=== PATIENT | male | born 1940 | race Caucasian/White ===

== ENCOUNTER 2017-09-26 08:48 | Inpatient (IN) | payer MEDICARE ==
--- NOTE | 2017-09-18 13:32 | HP ---
PREOPERATIVE HISTORY AND PHYSICAL: DATE OF ADMISSION: 09/26/17 PROVIDER: Juju Uribe MD * (DICTATED BY KATHY GEE) CHIEF COMPLAINT: Right knee pain. HISTORY OF PRESENT ILLNESS: Mr. Martinez is a 77-year-old gentleman with severe end-stage osteoarthritis of the right knee joint. He has constant pain with any ambulation. He cannot walk even one block without severe pain. He has difficulty with stairs and standing from a sitting position. He has failed conservative treatments. He is interested in surgical intervention for correction of the problem. PAST MEDICAL HISTORY: Osteoarthritis, hypertension, coronary artery disease, heart valve disorder, chronic ischemic heart disease, mitral valve abnormality and aortic valve stenosis, chronic peripheral edema, hypercholesterolemia, GERD , BPH, and a history of MRSA infection. PAST SURGICAL HISTORY: Coronary artery bypass graft with aortic valve and mitral valve replacement by Dr. Banks in [facility]. Cholecystectomy, tonsils and adenoids, multiple skin lesions, eye surgery, adenoidectomy, bilateral hernia repair, appendectomy, and cataract excision. He reports no complications that he can recall with any of those procedures. CURRENT MEDICATIONS: 1. Ondansetron 4 mg p.o. 8 hours as needed. 2. Amoxicillin 500 mg 4 tabs half an hour prior to dental procedures as needed. 3. Cipro 750 mg daily. 4. Atorvastatin calcium 80 mg daily. 5. Potassium chloride 20 mEq daily. 6. Multivitamin daily. 7. Pantoprazole sodium 40 mg daily. 8. Fexofenadine 180 mg daily. 9. Levothyroxine sodium 88 mcg daily. 10. Aspirin 81 mg daily. 11. Metoprolol tartrate 50 mg twice daily. 12. Furosemide 40 mg daily. 13. Tamsulosin 0.4 mg daily. 14. Tylenol 325 mg as needed. 15. Percocet 5/325 mg as needed. 16. Gabapentin 400 mg 3 times daily. 17. Nitrostat 0.4 mg sublingual q.5 minutes as needed. 18. Escitalopram oxylate 10 mg daily. 19. Ferrous sulfate 325 mg daily. 20. Guaifenesin ER 600 mg at night as needed. 21. Vitamin D 1000 units daily. ALLERGIES: ARTHROTEC, LISINOPRIL, DICLOFENAC, MISOPROSTOL, and CEFEPIME. FAMILY HISTORY: Positive for heart disease. SOCIAL HISTORY: He lives with his . He has never smoked. He denies significant alcoholic beverages. He denies recreational drug use. He ambulates with a walker secondary to pain. REVIEW OF SYSTEMS: Constitutional: Negative for recent hospitalizations, fevers, chills, night sweats or unexplained weight loss. Head: Negative for headaches, lightheadedness, or balance problems. Cardiovascular: Negative for chest or arm pain with exertion. Positive for history of heart attack and coronary artery disease. Positive for heart palpitations and a history of heart murmur. Positive for hypertension. Negative for DVT. Respiratory: Negative for chronic cough, shortness of breath with exertion, asthma, or COPD. Gastrointestinal: Positive for occasional heartburn. Negative for nausea, vomiting, diarrhea, or constipation. Positive for GERD. Genitourinary: Negative for nighttime urination, frequency of urination, urinary tract infections or kidney problems. Positive for BPH. Musculoskeletal: Negative for chronic back pain. No recent fracture. Skin: Negative for rashes, lesions , lumps, or sores. Endocrine: Negative for diabetes. Positive for hypothyroidism. Hematology: Negative for easy bleeding, bruising, or anemia. PHYSICAL EXAMINATION GENERAL: He is a well-developed, well-nourished pleasant male in no acute distress at rest. He is alert and oriented x3 with appropriate mood and affect. VITAL SIGNS: The patient is 5 feet 4 inches, 234 pounds. Blood pressure 110/68 , pulse 56, respirations 14, temperature 98.4. GAIT: He has a moderately antalgic gait favoring the right knee. He does use a cane. HEENT: Normocephalic, atraumatic. His hearing and vision are grossly intact. NECK: His trachea is midline. RESPIRATORY: Lungs are clear to auscultation bilaterally. No wheezes, rales, or rhonchi. CARDIOVASCULAR: Regular rate and rhythm. There is an audible murmur secondary to his valve replacement. No rubs, or gallops. Normal S1 and S2. ABDOMEN: Soft, nondistended, nontender. Normal bowel sounds. EXTREMITIES: Exam of the right lower extremity, skin is intact without abrasions or open wounds. There is no edema, ecchymosis, or gross deformities. There is no lymphadenopathy. He has had prior toe amputations distally. He has 5/5 strength with dorsiflexion and plantar flexion at the ankle. He has a moderate joint effusion at the knee. He has a varus deformity. He has 15 to 110 degrees of flexion with no varus or valgus instability. IMAGING: Standing views of the right knee were reviewed in the office and show severe end-stage osteoarthritic changes of the right knee. IMPRESSION: Right knee osteoarthritis. PLAN: The patient is to undergo right total knee arthroplasty by Dr. Uribe on 09/26/17. The risks, benefits, and post-operative course were discussed with the patient at length and he would like to proceed. A prescription for oxycodone will be sent to his pharmacy for postoperative pain. Coumadin will also be sent for DVT prophylaxis. All of his questions were answered to his full satisfaction. He is understanding. Call if he develops problems or concerns. KATHY GEE [id number]/[facility] #: [id number] MTDLesley
[~2017-09-26 08:48] MED LIST: Buffered Lidocaine 0.9% SYRIN* 5 ML/SYR SYRINGE INTRADERM ONE; Famotidine IV* 10 MG/ML 2 ML (20 mg) IV ONE
[2017-09-26] MEDS ORDERED: Famotidine IV* 10 MG/ML 2 ML (20 mg) ONE (08:59)
[2017-09-26] MEDS ORDERED: Buffered Lidocaine 0.9% SYRIN* 5 ML/SYR SYRINGE ONE (08:59)
[2017-09-26] MEDS ORDERED: ceFAZolin 2 GM PREMIX (*) 2 GM/50 ML BAG IVPB ONE (08:59)
[2017-09-26] MEDS ORDERED: Dexamethasone IV* 4 MG/ML 1 ML (4 MG) ONE (10:03)
[2017-09-26] MEDS ORDERED: Lidocaine 2% PF * 5 ML VIAL ONE ×2 (10:03→10:55)
[2017-09-26] MEDS ORDERED: KETAMINE HCL* 50 MG/ML 10 ML VIAL ONE (10:03)
[2017-09-26] MEDS ORDERED: fentaNYL* 50 MCG/ML 2 ML VIAL (100 MCG VIAL) ONE ×2 (10:03→15:18)
[2017-09-26] MEDS ORDERED: Midazolam* 1 MG/ML 5 ML VIAL (5 MG) ONE (10:03)
[2017-09-26] MEDS ORDERED: Propofol* 10 MG/ML 20 ML BTL IV PUSH ONE (10:03)
[2017-09-26] MEDS ORDERED: Ondansetron INJ* 2 MG/ML VIAL ONE (10:03)
[2017-09-26] MEDS ORDERED: ROPIVACAINE 5 MG/ML 30 ML BTL (0.5%) ONE (10:55)
[2017-09-26] MEDS ORDERED: Phenylephrine IV* 40 MCG/ML 10 ML SYRINGE ONE (11:36)
[2017-09-26] MEDS ORDERED: Phenylephrine INJ* 10 MG/ML 1 ML VIAL (10 MG) ONE (11:56)
[2017-09-26] MEDS ORDERED: EPHEDrine (Pressors)* 50 MG/ML VIAL ONE (11:56)
[2017-09-26] MEDS ORDERED: fentaNYL* 50 MCG/ML 5 ML VIAL (250 MCG VIAL) ONE (12:08)
[2017-09-26] MEDS ORDERED: HYDROmorphone INJ* 1 MG/ML CARPUJECT SYRINGE IV PRN (12:58)
[2017-09-26] MEDS ORDERED: fentaNYL* 50 MCG/ML 2 ML VIAL (100 MCG VIAL) IV PRN (12:58)
[2017-09-26] MEDS ORDERED: Ondansetron INJ* 2 MG/ML VIAL IV PRN (12:58)
[2017-09-26] MEDS ORDERED: Bupivacaine 0.5% SDV PF* 30 ML VIAL ONE (13:09)
[2017-09-26] MEDS ORDERED: Ondansetron TAB* 4 MG PO PRN (13:53)
[2017-09-26] MEDS ORDERED: diPHENhydraMINE IV* 50 MG/ML 1 ml VIAL (BENADRYL) IV PRN (13:53)
[2017-09-26] MEDS ORDERED: Morphine INJ* 2 MG/ML 1 ML SYRINGE (TWO MG - NEW SYRINGE VERSION) IV PRN (13:53)
[2017-09-26] MEDS ORDERED: Acetaminophen TAB* 325 MG PO PRN (13:53)
[2017-09-26] MEDS ORDERED: Polyethylene Glycol 3350* 17 GM PACKET PO PRN (13:53)
[2017-09-26] MEDS ORDERED: Bisacodyl SUPP* 10 MG SUPP PR PRN (13:53)
[2017-09-26] MEDS ORDERED: Magnesium Hydroxide LIQ* 30 ML UDC PO PRN (13:53)
[2017-09-26] MEDS ORDERED: oxyCODONE TAB* 5 MG TAB PO PRN (13:53)
[2017-09-26] MEDS ORDERED: Nitroglycerin TAB 0.4 MG* 0.4 MG TAB SL PRN (13:58)
[2017-09-26] MEDS ORDERED: guaiFENesin ER TAB 600 MG PO PRN (13:58)
[2017-09-26] MEDS ORDERED: HYDROmorphone INJ* 1 MG/ML CARPUJECT SYRINGE ONE (15:18)
--- NOTE | 2017-09-26 15:28 | RAD ---
INDICATION: Status post total right knee replacement surgery. TECHNIQUE: 2 views of the right knee were obtained. FINDINGS: The patient is status post total right knee replacement surgery. The bones and prostheses are in normal alignment. There is a surgical drain anterior to the distal femur. IMPRESSION: STATUS POST TOTAL RIGHT KNEE REPLACEMENT SURGERY.
[2017-09-26] MEDS ORDERED: Warfarin TAB(*) 6 MG PO ONE (17:00)
[2017-09-26] MEDS: Gabapentin CAP(*) 400 MG PO SCH ×2 (17:11→21:29)
[2017-09-26] MEDS: Clindamycin 600 MG IVPREMIX(* 600 MG/50 ML SDV IV SCH (17:49)
[2017-09-26] MEDS: Citalopram TAB* 20 MG PO SCH (18:15)
[2017-09-26] MEDS: Ciprofloxacin TAB* 750 MG PO SCH (18:21)
[2017-09-26] MEDS: Docusate CAP* 100 MG PO SCH (21:27)
[2017-09-26] MEDS: Metoprolol Tartrate TAB* 50 mg PO SCH (21:27)
[2017-09-27] MEDS: Clindamycin 600 MG IVPREMIX(* 600 MG/50 ML SDV IV SCH ×3 (01:48→17:36)
[2017-09-27] MEDS: Levothyroxine TAB* 88 MCG TAB PO SCH (05:35)
[2017-09-27 06:26] LABS: Hematocrit 33 % (42-52); Hemoglobin 11.8 g/dl (14.0-18.0)
[2017-09-27 06:39] LABS: BUN/Creatinine Ratio 16.6 (8-20); Calcium 8.2 mg/dL (8.6-10.3); EGFR African American 55.7 (>60); EGFR Non-African American 43.3 (>60); Potassium 3.8 mmol/L (3.5-5.0)
--- NOTE | 2017-09-27 07:33 | OP ---
DATE OF OPERATION: 09/26/17 - ROOM #349 DATE OF : 44. SURGEON: Juju Uribe MD. IMAGING SERVICES DIRECTOR: KATHY Meier. Ms. Garcia did help throughout the procedure with preparation of the leg, wound retraction, manipulation of the knee and wound closure. ANESTHESIOLOGIST: Dr. Sotelo. ANESTHESIA: Spinal. PREOPERATIVE DIAGNOSIS: Severe endstage degenerative osteoarthritis of the right knee joint. POSTOPERATIVE DIAGNOSIS: Severe endstage degenerative osteoarthritis of the right knee joint. OPERATIVE PROCEDURE: Right total knee arthroplasty. TOURNIQUET TIME: 45 minutes. COMPLICATIONS: None. ESTIMATED BLOOD LOSS: 200 mL. SPECIMEN: Bone and cartilage from the right knee joint, sent to Pathology. HARDWARE USED: This is [employer] cemented total knee arthroplasty hardware. For the cement, 2 packages of Simplex bone cement were used. For the femur, a size 6 right posterior stabilized Legion femoral component. For the tibia, size 5 right tibial component and an 11 mm size 5/6 posterior stabilized articular insert. A 35 mm 3-peg all-Poly patella. PREOPERATIVE HISTORY/INDICATIONS: Mr. Martinez is a 77-year-old gentleman with years of right knee pain. He failed conservative treatment with antiinflammatories, pain medications, intraarticular injection, and physical therapy. Radiographs confirmed bone on bone arthritis of the right knee. He elected to undergo right total knee arthroplasty due to continued pain and decreased quality of life. Informed consent was obtained for the patient. He understood the risks of the surgery included, but were not limited to bleeding, infection, damage to nearby structures, continued pain, need for further surgery, intraoperative fracture, nerve palsy, hardware failure or loosening, knee stiffness, loss of motion, stroke, heart attack, blood clot, and . He wished to proceed. INTRAOPERATIVE FINDINGS: Intraoperatively, the patient was noted to have tricompartmental full thickness loss of cartilage. DESCRIPTION OF PROCEDURE: Mr. Martinez was identified in the preanesthesia unit. His right lower extremity was marked as the correct operative side. Informed consent was signed and placed in the chart. The patient was taken to the operating room and placed under spinal anesthesia. A Saavedra catheter was placed. Tourniquet was placed on the right thigh. Right lower extremity was prepped and draped in the usual sterile fashion. Pre-op time-out was made to correctly identify the patient's side and site. Appropriate perioperative antibiotics were given within 1 hour of incision. Tourniquet was inflated and total tourniquet time for this procedure was 45 minutes. A 12-cm midline incision was made with a 10 blade and carried down to the extensor mechanism. A new 10 blade was used to make a standard medial parapatellar arthrotomy. The patella was subluxed laterally. Electrocautery was used to subperiosteally elevate soft tissue off the superomedial tibia to the midsagittal plane. The knee was flexed up. The anterior horn of the lateral meniscus and ACL were sharply released. A drill was used to enter the distal femur. Distal femoral cutting guide was pinned onto the distal femur. A 9 mm of distal femoral bone was carefully removed with an oscillating saw. External rotation guide was pinned on the distal femur. The distal femur was sized to a size 6. A size 6 multicutting jig was pinned on the distal femur. The oscillating saw was used to make the appropriate 4 chamfer cuts. The PCL was sharply released. The tibial was subluxed anteriorly. Extramedullary tibial cutting guide was pinned on the proximal tibia. Oscillating saw was used to make the proximal tibial cut perpendicular to the mechanical axis of the tibia. The knee was brought out into full extension. Spacer block had excellent fit with good medial lateral ligamentous balancing. Flexion and extension gaps were well balanced. The knee was flexed up. Lamina manager bridge was placed both medially and laterally. Any remaining meniscus carefully removed with electrocautery. Posterior osteophytes were removed with a curved osteotome. A trial size 6 right femur was impacted on to the distal femur and had excellent fit. The box for the posterior stabilized implant was prepared using a reamer and box cut osteotome. Trial 5 tibia with an 11-mm insert trial was placed. The knee was taken through range of motion and had full extension to 130 degrees of flexion with good patellofemoral tracking. The patella was everted. 9 mm of patellar bone and cartilage was carefully removed using the oscillating saw. The patella was sized to a size 35. A size 35 guide was used to drill the 3 peg holes. A 35 trial was placed and the knee was taken through range of motion. Patellofemoral tracking was satisfactory. All trials were carefully removed. The tibia was subluxed anteriorly. Proximal tibia was sized to a size 5. Proximal tibia was prepared using a size 5 keel punch. All bony cut surfaces were copiously irrigated with sterile saline and dried. Final implants were cemented into place, starting with the tibia, followed by the femur and last the patella. An 11-mm insert trial was placed while the knee was brought out into full extension. Tourniquet was turned down at 45 minutes. The knee was copiously irrigated with sterile saline. Once the cement had fully cured, the insert trial was removed. Any excess cement was carefully removed from around the implants and capsule. Electrocautery was used to obtain meticulous hemostasis. Final insert chosen with an 11-mm posterior stabilized articular insert, size 5/6. This was locked into position on the tibial tray without difficulty. Stability of the insert was checked and rechecked and noted to be stable. The knee was copiously irrigated with sterile saline. The extensor mechanism was closed over a medium Hemovac drain using #1 Vicryls. The rest of the incision was closed in a layered fashion using 0 and 2-0 Vicryls. Skin was closed using running 3-0 nylon suture. Sterile Xeroform, 4x4s, and Webril were used to cover the incision. Conner wrap and cold pack were placed over this. The patient's anesthesia was reversed without difficulty. He was taken to the PACU in stable condition. Intended DVT prophylaxis will be Coumadin with a Lovenox bridge. Intended weightbearing will be weightbearing as tolerated. [id number]/[facility] #: [id number] [facility]IT[facility]es[facility]
--- NOTE | 2017-09-27 07:43 | PN ---
Progress Note - Progress Note Date of Service: 09/27/17 SOAP: Subjective: Pt. is alert, nad. Objective: RLE - drain removed, tip intact. distally nvi with +df/pf, full sens lt, 2+ dp pulse. Laboratory Results - last 24 hr 09/27/17 09/27/17 09/27/17 06:08 06:08 06:08 Hgb 11.8 L Hct 33 L INR (Anticoag Therapy) 1.23 H Sodium 139 Potassium 3.8 Chloride 107 Carbon Dioxide 25 Anion Gap 7 BUN 26 H Creatinine 1.57 H Est GFR ( Amer) 55.7 Est GFR (Non-Af Amer) 43.3 BUN/Creatinine Ratio 16.6 Glucose 97 Calcium 8.2 L Vital Signs: Temp Pulse Resp BP Pulse Ox 98.0 F 72 16 115/63 98 09/27/17 03:57 09/27/17 03:57 09/27/17 03:57 09/27/17 03:57 09/27/17 03:57 Assessment: 77 yo M pod 1 s/p RTKA Plan: PT/OT - wbat rle lovenox today, coumadin tonight renal function elevated at baseline daily suppressive cipro necessary per Dr. Emmanuel
--- NOTE | 2017-09-27 08:11 | PN ---
Subjective - Subjective Reason for Note: Consultation Note History: Internal Medicine note: 1 day post right total knee arthroplasty. He is feeling well following his surgery - his pain is controlled at rest. He has no nausea, vomiting or anorexia - feels hungry. CVS: No chest pain, palpitations, dyspnea - he has chronic pedal edema Resp: No cough or sputum GIT: no abdo pain : no dyuria He is alert, oriented and conversational. Active Problems: Active Problems History of total knee arthroplasty (Acute) Z96.659 Depression (Chronic) F32.9 History of aortic valve replacement with bioprosthetic valve (Chronic) Z95.4 History of mitral valve replacement with bioprosthetic valve (Chronic) Z95.4 Hypercholesteremia (Chronic) E78.0 Primary hypothyroidism (Chronic) E03.9 S/P CABG (coronary artery bypass graft) (Chronic) Z95.1 Current Medications: Current Medications Acetaminophen (Tylenol Tab*) 650 mg PO Q4H PRN PRN Reason: PAIN OR TEMPERATURE Atorvastatin Calcium (Lipitor*) 80 mg PO DAILY [facility] Bisacodyl (Dulcolax Supp*) 10 mg UT DAILY PRN PRN Reason: constipation Ciprofloxacin (Cipro Tab*) 750 mg PO QPM [facility] Last Admin: 09/26/17 18:21 Dose: 750 mg Citalopram Hydrobromide (Celexa Tab*) 20 mg PO QPM [facility] Last Admin: 09/26/17 18:15 Dose: 20 mg Diphenhydramine HCl (Benadryl Iv*) 12.5 mg IV Q6H PRN PRN Reason: PRURITIS Docusate Sodium (Colace Cap*) 100 mg PO BID [facility] Last Admin: 09/26/17 21:27 Dose: 100 mg Enoxaparin Sodium (Lovenox(*)) 40 mg SUBCUT Q24H [facility] Furosemide (Lasix Tab*) 40 mg PO QAM [facility] Gabapentin (Neurontin Cap(*)) 400 mg PO TID [facility] Last Admin: 09/26/17 21:29 Dose: 400 mg Guaifenesin (Mucinex*) 600 mg PO BEDTIME PRN PRN Reason: CONGESTION Hydromorphone HCl (Dilaudid Injic*) 0.5 mg IV Q10M PRN PRN Reason: SEVERE PAIN Last Admin: 09/26/17 15:20 Dose: 0.5 mg Clindamycin HCl/Dextrose (Cleocin 600 Mg Ivpremix(*) Sdv) 600 mg in 50 mls @ 100 mls/hr IV Q8H [facility] Last Admin: 09/27/17 01:48 Dose: 100 mls/hr Lactated Ringer's (Lactated Ringers 1000 Ml Bag*) 1,000 mls @ 100 mls/hr IV PER RATE [facility] Last Admin: 09/27/17 01:48 Dose: 100 mls/hr Lactulose (Lactulose*) 30 ml PO Q6H PRN PRN Reason: constipation Levothyroxine Sodium (Synthroid Tab*) 88 mcg PO 0600 [facility] Last Admin: 09/27/17 05:35 Dose: 88 mcg Magnesium Hydroxide (Milk Of Magnesia Liq*) 30 ml PO Q6H PRN PRN Reason: constipation Metoprolol Tartrate (Lopressor Tab*) 50 mg PO BID [facility] Last Admin: 09/26/17 21:27 Dose: 50 mg Morphine Sulfate (Morphine Inj (Syringe)*) 2 mg IV Q2H PRN PRN Reason: PAIN Multivitamins/Minerals (Theragran/Minerals Tab*) 1 tab PO DAILY [facility] Nitroglycerin (Nitroglycerin Tab 0.4 Mg*) 0.4 mg SL Q5M PRN PRN Reason: PAIN - CHEST Omeprazole (Prilosec Cap*) 20 mg PO DAILY [facility] Ondansetron HCl (Zofran Inj*) 4 mg IV ONCE PRN PRN Reason: NAUSEA/VOMITING Ondansetron HCl (Zofran Tab*) 4 mg PO Q6H PRN PRN Reason: NAUSEA Oxycodone HCl (Roxycodone Tab*) 10 mg PO Q4H PRN PRN Reason: SEVERE PAIN Oxycodone/Acetaminophen (Percocet 5/325 Tab*) 1 tab PO Q3H PRN PRN Reason: PAIN - MODERATE Oxycodone/Acetaminophen (Percocet 5/325 Tab*) 2 tab PO Q3H PRN PRN Reason: PAIN - MODERATE Pharmacy Profile Note (Coumadin Daily Reminder*) 1 note FOLLOW UP 1700 [facility] Last Admin: 09/26/17 17:21 Dose: 1 note Polyethylene Glycol/Electrolytes (Miralax*) 17 gm PO DAILY PRN PRN Reason: Constipation Potassium Chloride (Klor Con Er Tab*) 20 meq PO DAILY [facility] Tamsulosin HCl (Flomax Cap*) 0.4 mg PO DAILY [facility] Warfarin Sodium (Coumadin Tab(*)) 6 mg PO ONCE@1700 [facility] PRN Reason: Protocol Stop: 09/27/17 17:01 Home Medications: Home Medications Medication Instructions Recorded Confirmed Type Atorvastatin* [Lipitor 80 MG*] 80 mg PO DAILY 05/11/15 09/26/17 History Fexofenadine (NF) [Adamaris 180 180 mg PO DAILY 05/11/15 09/26/17 History (NF)] Multivitamins/Minerals TAB* 1 tab PO DAILY 05/11/15 09/26/17 History [Theragran/minerals TAB*] Pantoprazole TAB (NF) [Protonix 40 mg PO DAILY 05/11/15 09/26/17 History TAB (NF)] Acetaminophen TAB* [Tylenol TAB*] 325 mg PO Q6H PRN 12/01/15 09/26/17 History Furosemide TAB* [Lasix TAB*] 40 mg PO QAM 12/01/15 09/26/17 History Gabapentin CAP(*) [Neurontin 400 400 mg PO TID 12/01/15 09/26/17 History mg CAP(*)] Ondansetron TAB* [Zofran Tab*] 4 mg PO Q8H PRN 12/01/15 09/13/17 History Tamsulosin HCl [Flomax] 0.4 mg PO DAILY 12/01/15 09/26/17 History oxyCODONE/Acetamin 5/325 MG* 1 tab PO Q4H PRN 12/01/15 09/26/17 History [Percocet 5/325 TAB*] Cholecalciferol [Vitamin D] 1,000 unit PO DAILY 01/23/16 09/26/17 History Escitalopram (NF) [Lexapro 10 mg 10 mg PO QPM 01/23/16 09/26/17 History (NF)] Ferrous Sulfate TAB* 325 mg PO DAILY 01/23/16 09/26/17 History Potassium Chlor TAB* [Potassium 20 meq PO DAILY 01/23/16 09/26/17 History Chlor TAB 20 MEQ*] Metoprolol Tartrate TAB* 50 mg PO BID 03/14/16 09/26/17 History [Lopressor TAB*] Nitroglycerin TAB 0.4 MG* 0.4 mg SL Q5M PRN 03/14/16 09/13/17 History guaiFENesin ER TAB [Mucinex*] 600 mg PO BEDTIME PRN 03/14/16 09/13/17 History Aspirin EC Low Dose* [Ecotrin EC 81 mg PO DAILY 07/31/16 09/26/17 History Low Dose*] Ciprofloxacin HCl [Cipro] 750 mg PO QPM 07/31/16 09/26/17 History Amoxicillin PO (*) [Amoxicillin 4 tab PO SEE INSTRUCTIONS 06/28/17 09/13/17 History 500 MG CAP*] Levothyroxine TAB* [Synthroid TAB*] 88 mcg PO DAILY 07/01/17 09/26/17 History Allergies: Allergies Allergy/AdvReac Type Severity Reaction Status Date / Time Cefepime Allergy Unknown Verified 09/26/17 09:07 Reaction Details Lisinopril Allergy Unknown Verified 09/26/17 09:07 Reaction Details Diclofenac [From Arthrotec] AdvReac Nausea Verified 09/26/17 09:07 Misoprostol [From Arthrotec] AdvReac Nausea Verified 09/26/17 09:07 bird Allergy Unknown Uncoded 09/26/17 09:07 Reaction Details ENVIRONMENT/SEASONAL Allergy STUFFY, Uncoded 09/26/17 09:07 ITCHY, WATERY EYES, RUNNY NOSE Objective - Vital Signs Vital Signs: Vital Signs 09/26/17 09/26/17 09/26/17 08:50 14:20 14:25 Temperature 97.7 F 98.1 F Pulse Rate 52 81 83 Respiratory 18 14 14 Rate Blood Pressure 141/67 124/65 122/73 (mmHg) O2 Sat by Pulse 96 95 96 Oximetry 09/26/17 09/26/17 09/26/17 14:30 14:45 15:00 Temperature Pulse Rate 79 85 82 Respiratory 14 12 20 Rate Blood Pressure 123/64 119/70 131/68 (mmHg) O2 Sat by Pulse 97 98 96 Oximetry 09/26/17 09/26/17 09/26/17 15:15 15:20 15:30 Temperature 96.8 F Pulse Rate 82 79 Respiratory 16 14 14 Rate Blood Pressure 139/77 137/77 (mmHg) O2 Sat by Pulse 98 98 Oximetry 09/26/17 09/26/17 09/26/17 15:45 16:00 16:26 Temperature 97.5 F Pulse Rate 80 83 85 Respiratory 14 12 18 Rate Blood Pressure 137/73 130/75 141/81 (mmHg) O2 Sat by Pulse 96 98 99 Oximetry 09/26/17 09/26/17 09/26/17 17:26 17:33 18:25 Temperature 97.9 F 97.6 F Pulse Rate 83 92 Respiratory 18 18 18 Rate Blood Pressure 147/85 116/77 (mmHg) O2 Sat by Pulse 96 97 Oximetry 09/26/17 09/26/17 09/26/17 21:29 21:30 21:41 Temperature 97.6 F Pulse Rate 84 Respiratory 18 16 18 Rate Blood Pressure 108/67 (mmHg) O2 Sat by Pulse 93 Oximetry 09/26/17 09/26/17 09/27/17 22:40 23:51 03:03 Temperature 98.0 F 97.9 F Pulse Rate 85 84 Respiratory 16 16 16 Rate Blood Pressure 109/69 121/65 (mmHg) O2 Sat by Pulse 96 97 Oximetry 09/27/17 09/27/17 03:12 03:57 Temperature 98.0 F Pulse Rate 72 Respiratory 16 Rate Blood Pressure 115/63 (mmHg) O2 Sat by Pulse 97 98 Oximetry - Intake and Output Intake and Output: Intake & Output 09/24/17 09/25/17 09/26/17 09/27/17 11:59 11:59 11:59 11:59 Intake Total 4877 Output Total 700 Balance 4177 Weight 231 lb 3.2 oz Intake: IV Fluids 3067 ABX - CLINDAMYCIN 55 LR 2962 NS 50ML, Cefazolin 2G 50 Oral 1810 Output: Urine 300 Saavedra 400 ADLs: Meal Record Start: 09/26/17 17: 33 Freq: Status: Active Protocol: Created 09/26/17 17:33 [id number] (Rec: 09/26/17 17:33 [id number] SSU-C08) Document 09/26/17 18:47 [id number] (Rec: 09/26/17 18:47 [id number] SSU-C19) Intake and Output Start: 09/26/17 13: 53 Freq: 06,14,2200 Status: Active Protocol: Created 09/26/17 14:00 [id number] (Rec: 09/26/17 14:00 BKG [id number]) Document 09/26/17 22:00 [id number] (Rec: 09/27/17 02:51 [id number] SSU-C20) Document 09/27/17 05:49 [id number] (Rec: 09/27/17 05:49 [id number] [id number]) Intake and Output Start: 09/26/17 17: 33 Freq: DAILY@0600,1400,2200 Status: Active Protocol: Created 09/26/17 17:33 [id number] (Rec: 09/26/17 17:33 [id number] SSU-C08) Document 09/26/17 23:07 [id number] (Rec: 09/26/17 23:07 [id number] S[facility]-C02) Document 09/27/17 05:53 [id number] (Rec: 09/27/17 05:54 [id number] SSU-C44) - Physical Exam General: No Cyanosis, No Anemia, No Jaundice, No Clubbing Skin: Normal: Rash Lungs and Chest: Yes: Chest Expansion Full, Chest Expansion Symetrica, Percussion Note Resonant, Vessicular Breath Sounds. No: Crackles, Wheezes Heart Rate and Rhythm: Regular JVP: Not Elevated Additional Cardiovascular: Yes: Normal Heart Sounds, Heart Murmur - LSE systolic murmur 2/6, Pedal Edema. No: Carotid Bruits Abdominal Exam: Yes: Soft, Bowel Sounds Present. No: Distention, Abdominal Mass , Abdominal Tenderness - Extremities Cranial Nerves II-XII Intact: Yes Limbs: Normal Power, Normal Tone - Neuro Orientation: A/O x3 Speech: Normal Results - Results Lab Results: Laboratory Results - last 24 hr 09/27/17 09/27/17 09/27/17 06:08 06:08 06:08 Hgb 11.8 L Hct 33 L INR (Anticoag Therapy) 1.23 H Sodium 139 Potassium 3.8 Chloride 107 Carbon Dioxide 25 Anion Gap 7 BUN 26 H Creatinine 1.57 H Est GFR ( Amer) 55.7 Est GFR (Non-Af Amer) 43.3 BUN/Creatinine Ratio 16.6 Glucose 97 Calcium 8.2 L Assessment - Problem List Assessment: Patient Problems History of total knee arthroplasty (Acute) Depression (Chronic) History of aortic valve replacement with bioprosthetic valve (Chronic) History of mitral valve replacement with bioprosthetic valve (Chronic) Hypercholesteremia (Chronic) Primary hypothyroidism (Chronic) S/P CABG (coronary artery bypass graft) (Chronic) Plan: History of total knee arthroplasty (Acute) He appears to have tolerated his surgery well. He is prepared for PT today - he will take analgesia in anticipation. Depression (Chronic) No problems today History of aortic valve replacement with bioprosthetic valve (Chronic)/History of mitral valve replacement with bioprosthetic valve (Chronic) Normal heart sounds, his murmur is present - no change. He has chronic pedal edema Hypercholesteremia (Chronic) secondary diagnosis Primary hypothyroidism (Chronic) secondary diagnosis S/P CABG (coronary artery bypass graft) (Chronic) secondary diagnosis History of amputated toes - his feet show no new ulcers. I discussed the above with the patient. He is doing well. I also spoke with Renita Martinez. She is unable to give him much support at home owing to her own medical issues. I think we should consider PMRU as he certainly has comorbidities that qualify and as his PCP I think this is medically necessary. I will ask for a consultation.
[2017-09-27] MEDS: Furosemide TAB* 40 MG PO SCH (08:34)
[2017-09-27] MEDS: Atorvastatin* 80 MG TAB PO SCH (08:35)
[2017-09-27] MEDS: Potassium Chlor TAB* 20 MEQ TAB.ER PO SCH (08:35)
[2017-09-27] MEDS: Omeprazole CAP* 20 MG PO SCH (08:35)
[2017-09-27] MEDS: oxyCODONE/Acetamin 5/325 MG* TAB PO PRN ×2 (08:35→14:59)
[2017-09-27] MEDS: Gabapentin CAP(*) 400 MG PO SCH ×3 (08:35→21:09)
[2017-09-27] MEDS: Tamsulosin CAP* 0.4 MG PO SCH (08:35)
[2017-09-27] MEDS: Multivitamins/Minerals TAB PO SCH (08:35)
[2017-09-27] MEDS: Docusate CAP* 100 MG PO SCH ×2 (08:35→21:08)
[2017-09-27] MEDS: Metoprolol Tartrate TAB* 50 mg PO SCH ×2 (08:35→21:25)
[2017-09-27] MEDS: Aspirin EC Low Dose* 81 MG TAB.EC PO SCH (09:36)
[2017-09-27] MEDS: Cholecalciferol TAB* 1000 UNITS PO SCH (09:36)
[2017-09-27] MEDS: Enoxaparin(*) 40 MG/0.4 ML SYR SUBCUT SCH (11:26)
[2017-09-27] MEDS ORDERED: Warfarin TAB(*) 6 MG PO SCH (17:00)
[2017-09-27] MEDS: Citalopram TAB* 20 MG PO SCH (17:36)
[2017-09-27] MEDS: Ciprofloxacin TAB* 750 MG PO SCH (17:36)
[2017-09-28] MEDS: Clindamycin 600 MG IVPREMIX(* 600 MG/50 ML SDV IV SCH ×2 (01:33→11:41)
[2017-09-28] MEDS: oxyCODONE/Acetamin 5/325 MG* TAB PO PRN ×5 (01:43→21:25)
[2017-09-28] MEDS: Levothyroxine TAB* 88 MCG TAB PO SCH (05:48)
[2017-09-28] MEDS: guaiFENesin ER TAB 600 MG PO PRN (06:00)
--- NOTE | 2017-09-28 07:54 | PN ---
Progress Note - Progress Note Date of Service: 09/28/17 SOAP: Subjective: patient resting comfortably in bed with no complaints Objective: Vital Signs Temp Pulse Resp BP Pulse Ox 99.4 F 85 16 134/66 96 09/28/17 03:39 09/28/17 03:39 09/28/17 03:39 09/28/17 03:39 09/28/17 03:39 Laboratory Last Values Hgb 11.8 g/dl (14.0-18.0) L 09/27/17 06:08 Hct 33 % (42-52) L 09/27/17 06:08 INR (Anticoag Therapy) 1.23 (0.89-1.11) H 09/27/17 06:08 Sodium 139 mmol/L (133-145) 09/27/17 06:08 Potassium 3.8 mmol/L (3.5-5.0) 09/27/17 06:08 Chloride 107 mmol/L (101-111) 09/27/17 06:08 Carbon Dioxide 25 mmol/L (22-32) 09/27/17 06:08 Anion Gap 7 mmol/L (2-11) 09/27/17 06:08 BUN 26 mg/dL (6-24) H 09/27/17 06:08 Creatinine 1.57 mg/dL (0.67-1.17) H 09/27/17 06:08 Est GFR ( Amer) 55.7 (>60) 09/27/17 06:08 Est GFR (Non-Af Amer) 43.3 (>60) 09/27/17 06:08 BUN/Creatinine Ratio 16.6 (8-20) 09/27/17 06:08 Glucose 97 mg/dL (70-100) 09/27/17 06:08 Calcium 8.2 mg/dL (8.6-10.3) L 09/27/17 06:08 incision:c/d; dressing changed PE: NVI Assessment: s/p right TKA Plan: 1) lovenox/coumadin for DVT prophylaxis 2) PT/OT-WBAT 3) awaiting inpatient rehab placement; likely [place]
[2017-09-28 08:40] LABS: Hematocrit 33 % (42-52); Hemoglobin 11.5 g/dl (14.0-18.0)
[2017-09-28] MEDS: Tamsulosin CAP* 0.4 MG PO SCH (09:06)
[2017-09-28] MEDS: Furosemide TAB* 40 MG PO SCH (09:07)
[2017-09-28] MEDS: Atorvastatin* 80 MG TAB PO SCH (09:07)
[2017-09-28] MEDS: Gabapentin CAP(*) 400 MG PO SCH ×3 (09:07→21:24)
[2017-09-28] MEDS: Cholecalciferol TAB* 1000 UNITS PO SCH (09:07)
[2017-09-28] MEDS: Omeprazole CAP* 20 MG PO SCH (09:07)
[2017-09-28] MEDS: Aspirin EC Low Dose* 81 MG TAB.EC PO SCH (09:07)
[2017-09-28] MEDS: Metoprolol Tartrate TAB* 50 mg PO SCH ×2 (09:07→21:24)
[2017-09-28] MEDS: Docusate CAP* 100 MG PO SCH ×2 (09:08→21:24)
[2017-09-28] MEDS: Multivitamins/Minerals TAB PO SCH (09:08)
[2017-09-28] MEDS: Potassium Chlor TAB* 20 MEQ TAB.ER PO SCH (09:08)
--- NOTE | 2017-09-28 09:11 | PN ---
Subjective - Subjective Reason for Note: Progress Note History: He is feeling well, but constipated. He is coughing a little. He managed to walk yesterday and tolerated this. Active Problems: Active Problems History of total knee arthroplasty (Acute) Z96.659 Depression (Chronic) F32.9 History of aortic valve replacement with bioprosthetic valve (Chronic) Z95.4 History of mitral valve replacement with bioprosthetic valve (Chronic) Z95.4 Hypercholesteremia (Chronic) E78.0 Primary hypothyroidism (Chronic) E03.9 S/P CABG (coronary artery bypass graft) (Chronic) Z95.1 Current Medications: Current Medications Acetaminophen (Tylenol Tab*) 650 mg PO Q4H PRN PRN Reason: PAIN OR TEMPERATURE Last Admin: 09/27/17 21:10 Dose: 650 mg Aspirin (Aspirin Ec Low Dose*) 81 mg PO DAILY [facility] Last Admin: 09/27/17 09:36 Dose: 81 mg Atorvastatin Calcium (Lipitor*) 80 mg PO DAILY [facility] Last Admin: 09/27/17 08:35 Dose: 80 mg Bisacodyl (Dulcolax Supp*) 10 mg [place] DAILY PRN PRN Reason: constipation Cholecalciferol (Vitamin D Tab*) 1,000 units PO DAILY [facility] Last Admin: 09/27/17 09:36 Dose: 1,000 units Ciprofloxacin (Cipro Tab*) 750 mg PO QPM [facility] Last Admin: 09/27/17 17:36 Dose: 750 mg Citalopram Hydrobromide (Celexa Tab*) 20 mg PO QPM [facility] Last Admin: 09/27/17 17:36 Dose: 20 mg Diphenhydramine HCl (Benadryl Iv*) 12.5 mg IV Q6H PRN PRN Reason: PRURITIS Docusate Sodium (Colace Cap*) 100 mg PO BID [facility] Last Admin: 09/27/17 21:08 Dose: 100 mg Enoxaparin Sodium (Lovenox(*)) 40 mg SUBCUT Q24H [facility] Last Admin: 09/27/17 11:26 Dose: 40 mg Furosemide (Lasix Tab*) 40 mg PO QAM [facility] Last Admin: 09/27/17 08:34 Dose: 40 mg Gabapentin (Neurontin Cap(*)) 400 mg PO TID [facility] Last Admin: 09/27/17 21:09 Dose: 400 mg Guaifenesin (Mucinex*) 600 mg PO DAILY PRN PRN Reason: CONGESTION Last Admin: 09/28/17 06:00 Dose: 600 mg Hydromorphone HCl (Dilaudid Injic*) 0.5 mg IV Q10M PRN PRN Reason: SEVERE PAIN Last Admin: 09/26/17 15:20 Dose: 0.5 mg Clindamycin HCl/Dextrose (Cleocin 600 Mg Ivpremix(*) Sdv) 600 mg in 50 mls @ 100 mls/hr IV Q8H [facility] Last Admin: 09/28/17 01:33 Dose: 100 mls/hr Lactulose (Lactulose*) 30 ml PO Q6H PRN PRN Reason: constipation Levothyroxine Sodium (Synthroid Tab*) 88 mcg PO 0600 [facility] Last Admin: 09/28/17 05:48 Dose: 88 mcg Magnesium Hydroxide (Milk Of Magnesia Liq*) 30 ml PO Q6H PRN PRN Reason: constipation Last Admin: 09/27/17 21:09 Dose: 30 ml Metoprolol Tartrate (Lopressor Tab*) 50 mg PO BID [facility] Morphine Sulfate (Morphine Inj (Syringe)*) 2 mg IV Q2H PRN PRN Reason: PAIN Multivitamins/Minerals (Theragran/Minerals Tab*) 1 tab PO DAILY [facility] Last Admin: 09/27/17 08:35 Dose: 1 tab Nitroglycerin (Nitroglycerin Tab 0.4 Mg*) 0.4 mg SL Q5M PRN PRN Reason: PAIN - CHEST Omeprazole (Prilosec Cap*) 20 mg PO DAILY [facility] Last Admin: 09/27/17 08:35 Dose: 20 mg Ondansetron HCl (Zofran Inj*) 4 mg IV ONCE PRN PRN Reason: NAUSEA/VOMITING Ondansetron HCl (Zofran Tab*) 4 mg PO Q6H PRN PRN Reason: NAUSEA Oxycodone HCl (Roxycodone Tab*) 10 mg PO Q4H PRN PRN Reason: SEVERE PAIN Last Admin: 09/27/17 11:26 Dose: 10 mg Oxycodone/Acetaminophen (Percocet 5/325 Tab*) 1 tab PO Q3H PRN PRN Reason: PAIN - MODERATE Last Admin: 09/28/17 01:43 Dose: 1 tab Oxycodone/Acetaminophen (Percocet 5/325 Tab*) 2 tab PO Q3H PRN PRN Reason: PAIN - MODERATE Last Admin: 09/27/17 14:59 Dose: 2 tab Pharmacy Profile Note (Coumadin Daily Reminder*) 1 note FOLLOW UP 1700 [facility] Last Admin: 09/27/17 16:55 Dose: 1 note Polyethylene Glycol/Electrolytes (Miralax*) 17 gm PO DAILY PRN PRN Reason: Constipation Potassium Chloride (Klor Con Er Tab*) 20 meq PO DAILY [facility] Last Admin: 09/27/17 08:35 Dose: 20 meq Tamsulosin HCl (Flomax Cap*) 0.4 mg PO DAILY [facility] Last Admin: 09/27/17 08:35 Dose: 0.4 mg Home Medications: Home Medications Medication Instructions Recorded Confirmed Type Atorvastatin* [Lipitor 80 MG*] 80 mg PO DAILY 05/11/15 09/26/17 History Fexofenadine (NF) [Adamaris 180 180 mg PO DAILY 05/11/15 09/26/17 History (NF)] Multivitamins/Minerals TAB* 1 tab PO DAILY 05/11/15 09/26/17 History [Theragran/minerals TAB*] Pantoprazole TAB (NF) [Protonix 40 mg PO DAILY 05/11/15 09/26/17 History TAB (NF)] Acetaminophen TAB* [Tylenol TAB*] 325 mg PO Q6H PRN 12/01/15 09/26/17 History Furosemide TAB* [Lasix TAB*] 40 mg PO QAM 12/01/15 09/26/17 History Gabapentin CAP(*) [Neurontin 400 400 mg PO TID 12/01/15 09/26/17 History mg CAP(*)] Ondansetron TAB* [Zofran Tab*] 4 mg PO Q8H PRN 12/01/15 09/13/17 History Tamsulosin HCl [Flomax] 0.4 mg PO DAILY 12/01/15 09/26/17 History oxyCODONE/Acetamin 5/325 MG* 1 tab PO Q4H PRN 12/01/15 09/26/17 History [Percocet 5/325 TAB*] Cholecalciferol [Vitamin D] 1,000 unit PO DAILY 01/23/16 09/26/17 History Escitalopram (NF) [Lexapro 10 mg 10 mg PO QPM 01/23/16 09/26/17 History (NF)] Ferrous Sulfate TAB* 325 mg PO DAILY 01/23/16 09/26/17 History Potassium Chlor TAB* [Potassium 20 meq PO DAILY 01/23/16 09/26/17 History Chlor TAB 20 MEQ*] Metoprolol Tartrate TAB* 50 mg PO BID 03/14/16 09/26/17 History [Lopressor TAB*] Nitroglycerin TAB 0.4 MG* 0.4 mg SL Q5M PRN 03/14/16 09/13/17 History guaiFENesin ER TAB [Mucinex*] 600 mg PO BEDTIME PRN 03/14/16 09/13/17 History Aspirin EC Low Dose* [Ecotrin EC 81 mg PO DAILY 07/31/16 09/26/17 History Low Dose*] Ciprofloxacin HCl [Cipro] 750 mg PO QPM 07/31/16 09/26/17 History Amoxicillin PO (*) [Amoxicillin 4 tab PO SEE INSTRUCTIONS 06/28/17 09/13/17 History 500 MG CAP*] Levothyroxine TAB* [Synthroid TAB*] 88 mcg PO DAILY 07/01/17 09/26/17 History Allergies: Allergies Allergy/AdvReac Type Severity Reaction Status Date / Time Cefepime Allergy Unknown Verified 09/26/17 09:07 Reaction Details Lisinopril Allergy Unknown Verified 09/26/17 09:07 Reaction Details Diclofenac [From Arthrotec] AdvReac Nausea Verified 09/26/17 09:07 Misoprostol [From Arthrotec] AdvReac Nausea Verified 09/26/17 09:07 bird Allergy Unknown Uncoded 09/26/17 09:07 Reaction Details ENVIRONMENT/SEASONAL Allergy STUFFY, Uncoded 09/26/17 09:07 ITCHY, WATERY EYES, RUNNY NOSE Objective - Vital Signs Vital Signs: Vital Signs 09/27/17 09/27/17 09/27/17 11:14 11:26 11:42 Temperature 97.9 F Pulse Rate 62 Respiratory 18 18 16 Rate Blood Pressure 149/57 (mmHg) O2 Sat by Pulse 97 Oximetry 09/27/17 09/27/17 09/27/17 13:33 13:34 14:59 Temperature Pulse Rate Respiratory 18 18 20 Rate Blood Pressure (mmHg) O2 Sat by Pulse Oximetry 09/27/17 09/27/17 09/27/17 15:38 15:57 16:00 Temperature 98.3 F Pulse Rate 77 Respiratory 18 18 Rate Blood Pressure 119/64 (mmHg) O2 Sat by Pulse 94 94 Oximetry 09/27/17 09/27/17 09/27/17 17:27 19:30 19:33 Temperature 99.9 F Pulse Rate 74 Respiratory 18 16 18 Rate Blood Pressure 91/55 (mmHg) O2 Sat by Pulse 95 Oximetry 09/27/17 09/27/17 09/27/17 20:45 21:09 23:30 Temperature 98.9 F Pulse Rate 75 74 Respiratory 16 16 Rate Blood Pressure 98/57 99/61 (mmHg) O2 Sat by Pulse 93 Oximetry 09/28/17 09/28/17 09/28/17 00:56 01:43 03:23 Temperature Pulse Rate Respiratory 14 16 18 Rate Blood Pressure (mmHg) O2 Sat by Pulse Oximetry 09/28/17 09/28/17 03:39 07:57 Temperature 99.4 F 99.4 F Pulse Rate 85 86 Respiratory 16 18 Rate Blood Pressure 134/66 119/65 (mmHg) O2 Sat by Pulse 96 95 Oximetry - Intake and Output Intake and Output: Intake & Output 09/25/17 09/26/17 09/27/17 09/28/17 11:59 11:59 11:59 11:59 Intake Total 5197 2401 Output Total 700 1100 Balance 4497 1301 Weight 231 lb 3.2 oz Intake: IV Fluids 3067 395 ABX - CLINDAMYCIN 55 LR 2962 370 NS (0.9%) 25 NS 50ML, Cefazolin 2G 50 IVPB 876 ABX - CLINDAMYCIN 225 LR 651 Oral 2130 1130 Output: Urine 300 1100 Saavedra 400 Other: # Bowel Movements 0 ADLs: Meal Record Start: 09/26/17 17: 33 Freq: Status: Active Protocol: Created 09/26/17 17:33 [id number] (Rec: 09/26/17 17:33 [id number] SSU-C08) Document 09/26/17 18:47 [id number] (Rec: 09/26/17 18:47 [id number] SSU-C19) Document 09/27/17 09:49 [id number] (Rec: 09/27/17 09:49 [id number] SSU-C04) Document 09/27/17 18:34 [id number] (Rec: 09/27/17 18:34 [id number] SSU-C04) Intake and Output Start: 09/26/17 13: 53 Freq: 06,14,2200 Status: Active Protocol: Created 09/26/17 14:00 [id number] (Rec: 09/26/17 14:00 BKG [id number]) Document 09/26/17 22:00 [id number] (Rec: 09/27/17 02:51 [id number] [facility]-C20) Document 09/27/17 05:49 [id number] (Rec: 09/27/17 05:49 [id number] SSU-M13) Document 09/27/17 13:56 [id number] (Rec: 09/27/17 13:56 [id number] SSU-C04) Document 09/27/17 17:54 [id number] (Rec: 09/27/17 17:54 [id number] SSU-C04) Document 09/27/17 22:00 [id number] (Rec: 09/27/17 22:17 [id number] SSU-C04) Document 09/28/17 01:55 [id number] (Rec: 09/28/17 01:55 [id number] SSU-C19) Document 09/28/17 06:00 [id number] (Rec: 09/28/17 06:02 [id number] SSU-M03) Intake and Output Start: 09/26/17 17: 33 Freq: DAILY@0600,1400,2200 Status: Complete Protocol: Created 09/26/17 17:33 [id number] (Rec: 09/26/17 17:33 [id number] SSU-C08) Document 09/26/17 23:07 [id number] (Rec: 09/26/17 23:07 [id number] SSU-C02) Document 09/27/17 05:53 [id number] (Rec: 09/27/17 05:54 [id number] SSU-C44) Document 09/27/17 14:00 [id number] (Rec: 09/27/17 16:17 [id number] SSU-C06) - Physical Exam General: No Cyanosis, No Anemia, No Jaundice, No Clubbing Lungs and Chest: Yes: Chest Expansion Full, Chest Expansion Symetrica, Percussion Note Resonant, Vessicular Breath Sounds, Crackles - a few scattered basal crackles. No: Wheezes, Respiratory Distress, Use of Accessory Muscles Heart Rate and Rhythm: Regular Additional Cardiovascular: Yes: Normal Heart Sounds, Pedal Edema. No: Heart Murmur Abdominal Exam: Yes: Soft, Abdominal Tenderness, Bowel Sounds Present. No: Distention Results - Results Lab Results: Laboratory Results - last 24 hr 09/28/17 09/28/17 08:14 08:14 Hgb 11.5 L Hct 33 L INR (Anticoag Therapy) 1.65 H Assessment - Problem List Assessment: Patient Problems History of total knee arthroplasty (Acute) Depression (Chronic) History of aortic valve replacement with bioprosthetic valve (Chronic) History of mitral valve replacement with bioprosthetic valve (Chronic) Hypercholesteremia (Chronic) Primary hypothyroidism (Chronic) S/P CABG (coronary artery bypass graft) (Chronic) Plan: He is doing well in his recovery from his right TKA. I have encouraged him to use incentive spirometry. I will review his bowel care plan. Otherwise, medically he has tolerated this surgery well. I discussed his rehabilitation plan with the [facility] - they will reconsider him for inpatient rehab.
[2017-09-28] MEDS: Enoxaparin(*) 40 MG/0.4 ML SYR SUBCUT SCH (13:03)
[2017-09-28] MEDS ORDERED: Warfarin TAB(*) 4 MG PO ONE (17:00)
[2017-09-28] MEDS: Ciprofloxacin TAB* 750 MG PO SCH (17:59)
[2017-09-28] MEDS: Citalopram TAB* 20 MG PO SCH (17:59)
[2017-09-29] MEDS: oxyCODONE/Acetamin 5/325 MG* TAB PO PRN ×4 (03:22→20:28)
[2017-09-29] MEDS: Levothyroxine TAB* 88 MCG TAB PO SCH (06:21)
--- NOTE | 2017-09-29 08:36 | PN ---
Progress Note - Progress Note Date of Service: 09/29/17 SOAP: Subjective: Pt. is alert, nad. Objective: RLE - distally nvi, dressing c/d/i. Vital Signs: Temp Pulse Resp BP Pulse Ox 97.9 F 68 16 109/60 95 09/29/17 03:19 09/29/17 03:19 09/29/17 07:42 09/29/17 03:19 09/29/17 07:42 Laboratory Results - last 24 hr 09/28/17 09/28/17 08:14 08:14 Hgb 11.5 L Hct 33 L INR (Anticoag Therapy) 1.65 H Assessment: 77 yo M pod 3 s/p RTKA Plan: 6 mg coumadin tonight cont lovenox wbat pt/ot heel protectors d/c to snf 09/30
[2017-09-29] MEDS: guaiFENesin ER TAB 600 MG PO PRN (10:05)
[2017-09-29] MEDS: Multivitamins/Minerals TAB PO SCH (10:05)
[2017-09-29] MEDS: Docusate CAP* 100 MG PO SCH ×2 (10:05→20:28)
[2017-09-29] MEDS: Tamsulosin CAP* 0.4 MG PO SCH (10:05)
[2017-09-29] MEDS: Omeprazole CAP* 20 MG PO SCH (10:05)
[2017-09-29] MEDS: Furosemide TAB* 40 MG PO SCH (10:05)
[2017-09-29] MEDS: Potassium Chlor TAB* 20 MEQ TAB.ER PO SCH (10:05)
[2017-09-29] MEDS: Aspirin EC Low Dose* 81 MG TAB.EC PO SCH (10:05)
[2017-09-29] MEDS: Gabapentin CAP(*) 400 MG PO SCH ×3 (10:06→20:27)
[2017-09-29] MEDS: Atorvastatin* 80 MG TAB PO SCH (10:06)
[2017-09-29] MEDS: Metoprolol Tartrate TAB* 50 mg PO SCH ×2 (10:06→20:28)
[2017-09-29] MEDS: Cholecalciferol TAB* 1000 UNITS PO SCH (10:06)
[2017-09-29] MEDS: Enoxaparin(*) 40 MG/0.4 ML SYR SUBCUT SCH (13:23)
[2017-09-29] MEDS ORDERED: Warfarin TAB(*) 6 MG PO SCH (17:00)
[2017-09-29] MEDS: Ciprofloxacin TAB* 750 MG PO SCH (17:32)
[2017-09-29] MEDS: Citalopram TAB* 20 MG PO SCH (17:32)
[2017-09-30] MEDS: Levothyroxine TAB* 88 MCG TAB PO SCH (06:28)
[2017-09-30 06:56] LABS: Hematocrit 30 % (42-52); Hemoglobin 10.5 g/dl (14.0-18.0)
[2017-09-30] MEDS: oxyCODONE/Acetamin 5/325 MG* TAB PO PRN ×3 (07:51→17:47)
[2017-09-30] MEDS: Atorvastatin* 80 MG TAB PO SCH (08:49)
[2017-09-30] MEDS: Gabapentin CAP(*) 400 MG PO SCH ×3 (08:49→22:17)
[2017-09-30] MEDS: Omeprazole CAP* 20 MG PO SCH (08:49)
[2017-09-30] MEDS: Cholecalciferol TAB* 1000 UNITS PO SCH (08:50)
[2017-09-30] MEDS: Potassium Chlor TAB* 20 MEQ TAB.ER PO SCH (08:50)
[2017-09-30] MEDS: Tamsulosin CAP* 0.4 MG PO SCH (08:50)
[2017-09-30] MEDS: Multivitamins/Minerals TAB PO SCH (08:50)
[2017-09-30] MEDS: Docusate CAP* 100 MG PO SCH ×2 (08:51→22:17)
[2017-09-30] MEDS: Metoprolol Tartrate TAB* 50 mg PO SCH ×2 (08:51→22:17)
[2017-09-30] MEDS: Furosemide TAB* 40 MG PO SCH (08:51)
[2017-09-30] MEDS: Aspirin EC Low Dose* 81 MG TAB.EC PO SCH (08:51)
--- NOTE | 2017-09-30 12:07 | PN ---
Progress Note - Progress Note Date of Service: 09/30/17 SOAP: Subjective: 77 y/o male s/p R TKA 09/26/[address] Uribe. Patient reports feeling well, working with PT. NO questions/ concerns. nosebleed this morning, controlled, no continued bleeding. VSS, afebrile overnight. Objective: General- Well appearing, NAD AO sitting in chair MSK- Dressing taken down, incision c/d/i, minimal edema, no ecchymosis seen, no induration. new dressing applied. + DF/PF. neg homans b/l, sensation to light touch intact. Vital Signs Temp 98.6 F 09/30/17 11:19 Pulse 64 09/30/17 11:19 Resp 16 09/30/17 11:19 BP 110/58 09/30/17 11:19 Pulse Ox 97 09/30/17 11:19 Intake & Output 09/29/17 09/30/17 09/30/17 18:59 06:59 18:59 Intake Total 660 700 320 Output Total 250 275 Balance 410 425 320 Intake: Oral 660 700 320 Output: Urine 250 275 Other: Estimated Void Small Medium Medium Date of Last Bowel 09/29/17 Movement # Bowel Movements 0 Estimated Stool Amount Small Small Medium # Voids 1 Laboratory Results - last 24 hr 09/30/17 09/30/17 06:35 06:35 Hgb 10.5 L Hct 30 L INR (Anticoag Therapy) 4.47 H Assessment: Stable 77 y/o male s/p R TKA 09/26/[address] Uribe. Plan: - Continue PT/ OT - DC to [facility] today for continued rehab - Follow up with DR. Uribe within 10 days - DVT suprather- D/C lovenox, coumadin, redraw INR thurs 10/03. - Pain controlled well, continue current pain regimen Active Medications Generic Name Dose Route Start Last Admin Trade Name Freq PRN Reason Stop Dose Admin Acetaminophen 650 mg 09/26/17 13:53 09/27/17 21:10 Tylenol Tab* PO 650 mg Q4H PRN Administration PAIN OR TEMPERATURE Aspirin 81 mg 09/27/17 09:00 09/30/17 08:51 Aspirin Ec Low Dose* PO 81 mg DAILY LI Administration Atorvastatin Calcium 80 mg 09/27/17 09:00 09/30/17 08:49 Lipitor* PO 80 mg DAILY LI Administration Bisacodyl 10 mg 09/26/17 13:53 Dulcolax Supp* MN DAILY PRN constipation Cholecalciferol 1,000 units 09/27/17 09:00 09/30/17 08:50 Vitamin D Tab* PO 1,000 units DAILY LI Administration Ciprofloxacin 750 mg 09/26/17 18:00 09/29/17 17:32 Cipro Tab* PO 750 mg QPM LI Administration Citalopram Hydrobromide 20 mg 09/26/17 18:00 09/29/17 17:32 Celexa Tab* PO 20 mg QPM LI Administration Diphenhydramine HCl 12.5 mg 09/26/17 13:53 Benadryl Iv* IV Q6H PRN PRURITIS Docusate Sodium 100 mg 09/26/17 21:00 09/30/17 08:51 Colace Cap* PO 100 mg BID LI Administration Furosemide 40 mg 09/27/17 09:00 09/30/17 08:51 Lasix Tab* PO 40 mg QAM LI Administration Gabapentin 400 mg 09/26/17 14:00 09/30/17 08:49 Neurontin Cap(*) PO 400 mg TID LI Administration Guaifenesin 600 mg 09/28/17 06:00 09/29/17 10:05 Mucinex* PO 600 mg DAILY PRN Administration CONGESTION Hydromorphone HCl 0.5 mg 09/26/17 12:58 09/26/17 15:20 Dilaudid Injic* IV 0.5 mg Q10M PRN Administration SEVERE PAIN Lactulose 30 ml 09/26/17 13:53 Lactulose* PO Q6H PRN constipation Levothyroxine Sodium 88 mcg 09/27/17 06:00 09/30/17 06:28 Synthroid Tab* PO 88 mcg 0600 LI Administration Magnesium Hydroxide 30 ml 09/26/17 13:53 09/27/17 21:09 Milk Of Magnesia Liq* PO 30 ml Q6H PRN Administration constipation Metoprolol Tartrate 50 mg 09/27/17 21:06 09/30/17 08:51 Lopressor Tab* PO 50 mg BID LI Administration Morphine Sulfate 2 mg 09/26/17 13:53 Morphine Inj (Syringe)* IV Q2H PRN PAIN Multivitamins/Minerals 1 tab 11/10/17 09:00 09/30/17 08:50 Theragran/Minerals Tab* PO 1 tab DAILY LI Administration Nitroglycerin 0.4 mg 09/26/17 13:58 Nitroglycerin Tab 0.4 Mg* SL Q5M PRN PAIN - CHEST Omeprazole 20 mg 09/27/17 09:00 09/30/17 08:49 Prilosec Cap* PO 20 mg DAILY LI Administration Ondansetron HCl 4 mg 09/26/17 12:58 Zofran Inj* IV ONCE PRN NAUSEA/VOMITING Ondansetron HCl 4 mg 09/26/17 13:53 Zofran Tab* PO Q6H PRN NAUSEA Oxycodone HCl 10 mg 09/26/17 13:53 09/27/17 11:26 Roxycodone Tab* PO 10 mg Q4H PRN Administration SEVERE PAIN Oxycodone/Acetaminophen 1 tab 09/26/17 13:53 09/29/17 20:28 Percocet 5/325 Tab* PO 1 tab Q3H PRN Administration PAIN - MODERATE Oxycodone/Acetaminophen 2 tab 09/26/17 13:53 09/30/17 10:58 Percocet 5/325 Tab* PO 2 tab Q3H PRN Administration PAIN - MODERATE Pharmacy Profile Note 1 note 09/26/17 17:00 09/29/17 17:33 Coumadin Daily Reminder* FOLLOW UP 1 note 1700 LI Administration Polyethylene Glycol/Electrolytes 17 gm 09/26/17 13:53 Miralax* PO DAILY PRN Constipation Potassium Chloride 20 meq 09/27/17 09:00 09/30/17 08:50 Klor Con Er Tab* PO 20 meq DAILY LI Administration Tamsulosin HCl 0.4 mg 09/27/17 09:00 09/30/17 08:50 Flomax Cap* PO 0.4 mg DAILY LI Administration
--- NOTE | 2017-09-30 13:54 | DS ---
AMENDED REPORT NOW INCLUDES COSIGNER DESIGNATION - ESIGNED BEFORE ADJUSTMENT DATE OF ADMISSION: 09/26/2017. DATE OF DISCHARGE: 09/30/2017. ATTENDING SURGEON: Dr. Juju Uribe * (dictated by KATHY Moore). CHIEF COMPLAINT: 1. Right knee pain. 2. Osteoarthritis. 3. Hypertension. 4. Coronary artery disease. 5. Heart valve disorder. 6. Chronic ischemic heart disease. 7. Mitral valve abnormality. 8. Aortic valve stenosis. 9. Chronic peripheral edema. 10. Hypercholesterolemia. 11. GERD. 12. BPH. 13. History of MRSA. DISCHARGE DIAGNOSES: 1. Status post right total knee arthroplasty. 2. Generalized arthritis. 3. Hypertension. 4. Coronary artery disease. 5. Heart failure disorder. 6. Chronic ischemic heart disease. 7. Mitral valve abnormality. 8. Aortic valve stenosis. 9. Chronic peripheral edema. 10. Hypercholesterolemia. 11. GERD. 12. BPH. 13. History of MRSA. PROCEDURE: Right total hip arthroplasty. CONSULTATIONS: 1. Physical therapy. 2. Occupational therapy. 3. Hospitalist. BRIEF HISTORY: Mr. Martinez is a very pleasant, 77-year-old gentleman with severe end-stage osteoarthritis of the right knee who failed conservative treatment and elected to undergo right total knee arthroplasty on 09/26/[address] Uribe. HOSPITAL COURSE: Mr. Martinez was admitted to [facility] on 2016 where he underwent a right total knee arthroplasty. Postoperatively, he recovered in the Surgical Short Stay Unit. On postoperative day one, his Saavedra was removed and he was able to void on his own without difficulty. He advanced to a regular diet and his pain was controlled with p.o. Percocet. He was restarted on his home medications. His labs and vital signs remained stable. He was able to weightbear as tolerated in the right lower extremity. He advanced with physical therapy and occupational therapy; however, it was recommended that the patient undergo rehabilitation. His DVT prophylaxis was managed with Lovenox and Coumadin until he reached a therapeutic INR. By postoperative day five, the patient was medically and orthopedically stable for discharge to go home with home services. PHYSICAL EXAMINATION: General: Well-appearing, no acute distress, alert and oriented, resting comfortably in chair. Vital Signs: Temperature 98.6, pulse 64, respirations 16, blood pressure 110/58, pulse oxygenation 97 percent on room air. Examination of the right lower extremity demonstrates the surgical incision over the right knee which is clean, dry and intact with minimal edema. No ecchymosis is seen. No induration around the knee site. The knee dressing was applied. There was positive dorsiflexion and plantarflexion equal bilaterally. Negative Crissy's sign bilaterally. Sensation to light touch intact bilateral lower extremities. LABORATORY DATA: On the date of discharge, H and H at 10.5 and 30 with an INR of 4.47. RADIOGRAPHS: Postoperative films show a right total knee arthroplasty in satisfactory placement. DISCHARGE MEDICATIONS: 1. Tylenol 650 mg q.4 hours prn for pain. 2. Aspirin 81 mg p.o. daily. 3. Atorvastatin 80 mg p.o. daily. 4. Ciprofloxacin 750 mg p.o. q.p.m. per Dr. Carbajal's recommendation. 5. Colace 100 mg p.o. b.i.d. 6. Lexapro 10 mg p.o. q.p.m. 7. Furosemide 40 mg p.o. q.a.m. 8. Gabapentin 400 mg p.o. t.i.d. 9. Mucinex 600 mg p.o. at bedtime prn. 10. Levothyroxine 88 mcg p.o. daily. 11. Metoprolol 50 mg p.o. b.i.d. 12. Daily multivitamin one tablet daily. 13. Nitroglycerin tablet 0.4 mg sublingually q.5 minutes prn chest pain. 14. Oxycodone/acetaminophen 5/325 one to two tablets every 3 hours as needed for pain. 15. Protonix 40 mg p.o. daily. 16. Potassium Chloride 20 mEq p.o. daily. 17. Flomax 0.4 mg p.o. daily. 18. Amoxicillin 500 mg four tablets p.o. one hour prior to dental procedures. 19. Ferrous sulfate 325 mg p.o. daily. 20. Adamaris 180 mg p.o. daily. 21. Zofran 4 mg p.o. q.8 hours prn for nausea. 22. Coumadin 2 mg tablet one to three tablets daily at 5:00 p.m. per physician instructions. Please hold current dose of Lovenox due to supratherapeutic INR until lab draws on 10/03/2017. CONDITION ON DISCHARGE: Stable. DISCHARGE INSTRUCTIONS: Mr. Martinez is a very pleasant, 77-year-old gentleman , postoperative day five, status post right total knee arthroplasty which was uncomplicated. He is orthopedically and medically stable for discharge to go to [facility] for continued rehabilitation services. His labs and vital signs are stable; however, he does have an elevated INR level of 4.4. His Coumadin will be held and with repeat INR draw on 10/03/2017. He will have INR draws every Saturday and . He will remain weightbearing as tolerated in the right lower extremity. He will have physical therapy at [place] [facility]. He will continue to take Percocet for pain control and Colace up to three times a day for constipation with a goal of a bowel motion every two days. He will follow-up with Dr. Uribe's office in approximately 10 to 14 days for incision check. He was instructed to go immediately to the ER should he develop chest pain or shortness of breath. Should he develop fever, increasing pain or redness, he is to call the office immediately. KATHY MOORE [id number]/[facility] #: [id number] RUDOLPH
[2017-09-30] MEDS: Citalopram TAB* 20 MG PO SCH (17:45)
[2017-09-30] MEDS: Ciprofloxacin TAB* 750 MG PO SCH (17:45)
[2017-10-01 05:10] LABS: Hematocrit 30 % (42-52)
[2017-10-01] MEDS: Levothyroxine TAB* 88 MCG TAB PO SCH (06:41)
[2017-10-01] MEDS: Gabapentin CAP(*) 400 MG PO SCH (08:12)
[2017-10-01] MEDS: Docusate CAP* 100 MG PO SCH (08:12)
[2017-10-01] MEDS: Metoprolol Tartrate TAB* 50 mg PO SCH (08:12)
[2017-10-01] MEDS: Tamsulosin CAP* 0.4 MG PO SCH (08:12)
[2017-10-01] MEDS: Cholecalciferol TAB* 1000 UNITS PO SCH (08:12)
[2017-10-01] MEDS: Potassium Chlor TAB* 20 MEQ TAB.ER PO SCH (08:12)
[2017-10-01] MEDS: Atorvastatin* 80 MG TAB PO SCH (08:12)
[2017-10-01] MEDS: Multivitamins/Minerals TAB PO SCH (08:12)
[2017-10-01] MEDS: Omeprazole CAP* 20 MG PO SCH (08:12)
[2017-10-01] MEDS: Furosemide TAB* 40 MG PO SCH (08:12)
[2017-10-01] MEDS: Aspirin EC Low Dose* 81 MG TAB.EC PO SCH (08:12)
--- NOTE | 2017-10-01 08:12 | PN ---
Progress Note - Progress Note Date of Service: 10/01/17 SOAP: Subjective: []Patient seen at bedside. Knee pain is well controlled. He is urinating without difficulty but notes new onset of nonpainful scrotal swelling. No chest pain, shortness of breath, dizziness, leg numbness, nausea. Objective: [] Vital Signs Temp 98.2 F 10/01/17 03:27 Pulse 63 10/01/17 03:27 Resp 18 10/01/17 03:27 BP 141/72 10/01/17 03:27 Pulse Ox 97 10/01/17 03:27 Intake & Output 09/30/17 10/01/17 10/01/17 18:59 06:59 18:59 Intake Total 1160 800 Output Total 400 550 Balance 760 250 Intake: Oral 1160 800 Output: Urine 400 550 Other: Estimated Void Medium # Bowel Movements 1 Estimated Stool Amount Medium Small Laboratory Last Values Hgb 10.0 g/dl (14.0-18.0) L 10/01/17 04:36 Hct 30 % (42-52) L 10/01/17 04:36 INR (Anticoag Therapy) 4.27 (0.89-1.11) H 10/01/17 04:36 Sodium 139 mmol/L (133-145) 09/27/17 06:08 Potassium 3.8 mmol/L (3.5-5.0) 09/27/17 06:08 Chloride 107 mmol/L (101-111) 09/27/17 06:08 Carbon Dioxide 25 mmol/L (22-32) 09/27/17 06:08 Anion Gap 7 mmol/L (2-11) 09/27/17 06:08 BUN 26 mg/dL (6-24) H 09/27/17 06:08 Creatinine 1.57 mg/dL (0.67-1.17) H 09/27/17 06:08 Est GFR ( Amer) 55.7 (>60) 09/27/17 06:08 Est GFR (Non-Af Amer) 43.3 (>60) 09/27/17 06:08 BUN/Creatinine Ratio 16.6 (8-20) 09/27/17 06:08 Glucose 97 mg/dL (70-100) 09/27/17 06:08 Calcium 8.2 mg/dL (8.6-10.3) L 09/27/17 06:08 General: Well appearing, out of bed in chair, no acute distress. RLE: Incision is clean, dry and intact without erythema of wound edge or discharge. Dressing was changed in sterile fashion. LE with 2+ pitting edema, calf is supple and nontender without erythema. No palpable cords and negative mykel's sign. LLE: 1+ pitting edema. Calf is supple and nontender without erythema, edema, palpable cords. Negative mykel's sign. Bilateral lower extremities: Hx bilateral transmetatarsal amputation- sensation intact to light touch distally. Brisk capillary refill distally. DF/PF intact. 1 + dp/pt pulses Scrotum: mildly edematous without lesions, tenderness or erythema Assessment: []Right total knee arthroplasty, Dr. Uribe Plan: []WBAT HOLD coumadin until INR rechecked 10/03/17. Pain control with percocet which was previously sent home. Acute Scrotal swelling discussed with Dr. Louis. As long as patient is nontender , nonerythematous and urinating well this is likely from IV fluids and does not prohibit discharge to SNF or warrant further workup aside from elevation and watchful waiting. Patient is aware that should he develop pain, tenderness, redness, worsening swelling, difficult with urination he is to alert a medical provider [facility]. Kosher meals sent with patient.
[2017-10-01 08:37] VITALS: BP 120/61
[2017-10-01] MEDS: oxyCODONE/Acetamin 5/325 MG* TAB PO PRN (09:31)
== END 2017-10-01 10:30 | DRG 470 ==
LOC: AA 08:48 → SSU 16:19
PROVIDERS: ADMIT Orthopaedic Surgery Adult Reconstructive Orthopaedic Surgery; ATTEND Orthopaedic Surgery Adult Reconstructive Orthopaedic Surgery
PROC: 0SRC0J9 Replacement of Right Knee Joint with Synthetic Substitute, Cemented, Open Approach (ICD-10-PCS; principal; 2017-09-26 11:00)
DX: M17.11 Unilateral primary osteoarthritis, right knee (principal); E03.9 Hypothyroidism, unspecified; I25.10 Atherosclerotic heart disease of native coronary artery without angina pectoris; E78.00 Pure hypercholesterolemia, unspecified; K21.9 Gastro-esophageal reflux disease without esophagitis; N40.0 Benign prostatic hyperplasia without lower urinary tract symptoms; F32.9 Major depressive disorder, single episode, unspecified; G47.33 Obstructive sleep apnea (adult) (pediatric); N18.9 Chronic kidney disease, unspecified; M25.761 Osteophyte, right knee; M21.161 Varus deformity, not elsewhere classified, right knee; R60.0 Localized edema; I12.9 Hypertensive chronic kidney disease with stage 1 through stage 4 chronic kidney disease, or unspecified chronic kidney disease; N50.89 Other specified disorders of the male genital organs; R04.0 Epistaxis; Z79.82 Long term (current) use of aspirin; Z86.14 Personal history of Methicillin resistant Staphylococcus aureus infection; Z95.2 Presence of prosthetic heart valve; Z95.1 Presence of aortocoronary bypass graft; Z89.429 Acquired absence of other toe(s), unspecified side; Z98.49 Cataract extraction status, unspecified eye; Z88.6 Allergy status to analgesic agent; Z88.1 Allergy status to other antibiotic agents; Z88.8 Allergy status to other drugs, medicaments and biological substances
CPT/HCPCS: 36415; 80048; 85014; 85018; 85610; 87641; 88305; 88311; A9270-GY; C1776; J0690; J1100; J1170; J1650; J2250; J2405; J2704; J2795; J3010

== ENCOUNTER 2017-10-12 10:06 | Emergency (ER) | payer MEDICARE ==
[2017-10-12 10:43] LABS: Hematocrit 36 % (42-52); Hemoglobin 11.9 g/dl (14.0-18.0); Mean Corpuscular HGB Conc 33 g/dl (31-36); Mean Corpuscular Hemoglobin 30 pg (27-31); Mean Corpuscular Volume 89 fL (80-94); Mean Platelet Volume 7 um3 (7.4-10.4); Red Cell Distribution Width 14 % (10.5-15); White Blood Count 8.1 10^3/ul (3.5-10.8)
[2017-10-12 10:57] LABS: Albumin 3.5 g/dL (3.2-5.2); BUN/Creatinine Ratio 12.4 (8-20); Calcium 9.6 mg/dL (8.6-10.3); EGFR African American 57.3 (>60); EGFR Non-African American 44.6 (>60); Globulin 3.4 g/dL (2-4); Potassium 4.1 mmol/L (3.5-5.0); Total Bilirubin 0.7 mg/dL (0.2-1.0); Total Protein 6.9 g/dL (6.4-8.9)
[2017-10-12] MEDS ORDERED: Phenylephrine 0.25% NASAL* PUFF ONE (13:50)
[2017-10-12] MEDS ORDERED: Phenylephrine 0.5% NASAL* BTL ONE (13:50)
[2017-10-12] MEDS ORDERED: oxyCODONE/Acetamin 5/325 MG* TAB PO ONE (14:44)
[2017-10-12 16:27] VITALS: BP 119/73
--- NOTE | 2017-10-13 15:01 | ED ---
Mikael Tirado Nilda, scribed for Tonio Larsen MD on 10/12/17 at 1012 . Throat Pain/Nasal Congestion - HPI Summary HPI Summary: This patient is a 77 year old M BIBA to [facility] with a chief complaint of constant spontaneous bilateral epistaxis since this morning. Pt notes that " when I plugged up the right nostril the left started bleeding." He notes the blood has mostly stopped with compression. The patient rates the pain 2/10 in severity. Patient reports lright knee pain, and mild SOB secondary to cotton in nasal passages to stop the bleeding. Pt states he is on Warfarin. PMHx includes DVT prophylaxis. PSHx includes recent right knee replacement. - History of Current Complaint Chief Complaint: EDGeneral Hx Obtained From: Patient Onset/Duration: Sudden Onset, Lasting Hours, Resolved Severity: Moderate Related History: Other (Noted In Comments) - Warfarin - Allergies/Home Medications Allergies/Adverse Reactions: Allergies Allergy/AdvReac Type Severity Reaction Status Date / Time Cefepime Allergy Unknown Verified 09/26/17 09:07 Reaction Details Lisinopril Allergy Unknown Verified 09/26/17 09:07 Reaction Details Diclofenac [From Arthrotec] AdvReac Nausea Verified 09/26/17 09:07 Misoprostol [From Arthrotec] AdvReac Nausea Verified 09/26/17 09:07 bird Allergy Unknown Uncoded 09/26/17 09:07 Reaction Details ENVIRONMENT/SEASONAL Allergy STUFFY, Uncoded 09/26/17 09:07 ITCHY, WATERY EYES, RUNNY NOSE PMH/Surg Hx/FS Hx/Imm Hx Endocrine/Hematology History: Reports: Hx Thyroid Disease - UNDERACTIVE PER PATIENT Denies: Hx Diabetes, Hx Anemia Cardiovascular History: Reports: Hx Angina, Hx Cardiac Arrest - x2 April 2015, Hx Congestive Heart Failure, Hx Coronary Artery Disease - BYPASS-2014, Hx Hypercholesterolemia, Hx Hypertension, Hx Myocardial Infarction, 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 ERNST Denies: Hx Pacemaker/ICD Respiratory History: Reports: Hx Pulmonary Edema, Hx Sleep Apnea Denies: Hx Asthma, Hx Chronic Obstructive Pulmonary Disease (COPD), Hx Pulmonary Embolism GI History: Reports: Hx Gastroesophageal Reflux Disease - HX OF, Hx Hiatal Hernia Denies: Hx Jaundice History: Reports: Other Problems/Disorders - BPH Denies: Hx Dialysis, Hx Renal Disease Musculoskeletal History: Reports: Hx Arthritis - GENERALIZED, Other Musculoskeletal History - GOUT LEFT FOOT Sensory History: Reports: Hx Cataracts, Hx Contacts or Glasses - glasses TO READ Denies: Hx Hearing Aid Opthamlomology History: Reports: Hx Cataracts, Hx Contacts or Glasses - glasses TO READ Neurological History: Reports: Other Neuro Impairments/Disorders - 2015-3 MONTHS IN A COMA-states after bypass surgery Psychiatric History: Reports: Hx Anxiety - ON MEDS, Hx Depression - on medication for Denies: Hx Panic Disorder - Surgical History Surgery Procedure, Year, and Place: GALLBLADDER;. HERNIA REPAIR;. BILATERAL CATARACT;. TONSILECTOMY 1951;. OPEN HEART SURGERY WITH BYPASS GRAFT AND AORTIC VALVE REPLACEMENT. APRIL 2015. ([facility] TRIFECTA TISSUE HEART VALVE MRI - MUST SCAN IN NORMAL MODE; IS OKAY AT 1.5T AND 3T). 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 BILATERAL FEET ALL TOES AMPUTATION;. TOOTH EXTRACTED. appendectomy Hx Anesthesia Reactions: Yes - ETHER - N/V, Infectious Disease History: Reports: Hx of Known/Suspected MRSA - STATES TO CHEST INCISION PER PATIENT, Hx Shingles Denies: Hx Clostridium Difficile, Hx Hepatitis, Hx Human Immunodeficiency Virus (HIV), Hx Tuberculosis, History Other Infectious Disease - Family History Known Family History: Positive: Cardiac Disease - father - Social History Alcohol Use: None Hx Substance Use: No Substance Use Type: Reports: None Hx Tobacco Use: No Smoking Status (MU): Never Smoked Tobacco Have You Smoked in the Last Year: No Review of Systems Positive: Epistaxis Positive: Shortness Of Breath Positive: Other - right knee pain (recent replacement). All Other Systems Reviewed And Are Negative: Yes Physical Exam - Summary Physical Exam Summary: VITAL SIGNS: Reviewed. GENERAL: Patient is a well-developed and nourished male who is lying comfortable in the stretcher. Patient is not in any acute respiratory distress. HEAD AND FACE: No signs of trauma. No ecchymosis, hematomas or skull depressions. No sinus tenderness. EYES: PERRLA, EOMI x 2, No injected conjunctiva, no nystagmus. EARS: Hearing grossly intact. Ear canals and tympanic membranes are within normal limits. MOUTH: Oropharynx within normal limits. NOSE: epistaxis of right nostril not actively bleeding at this point. NECK: Supple, trachea is midline, no adenopathy, no JVD, no carotid bruit, no c- spine tenderness, neck with full ROM. CHEST: Symmetric, no tenderness at palpation LUNGS: Clear to auscultation bilaterally. No wheezing or crackles. CVS: Regular rate and rhythm, S1 and S2 present, no murmurs or gallops appreciated. ABDOMEN: Soft, non-tender. No signs of distention. No rebound no guarding, and no masses palpated. Bowel sounds are normal. EXTREMITIES: FROM in all major joints, no edema, no cyanosis or clubbing. NEURO: Alert and oriented x 3. No acute neurological deficits. Speech is normal and follows commands. SKIN: Dry and warm Triage Information Reviewed: Yes Vital Signs On Initial Exam: Initial Vitals Temp Pulse Resp BP Pulse Ox 96.8 F 61 16 151/76 100 10/12/17 10:10 10/12/17 10:10 10/12/17 10:10 10/12/17 10:10 10/12/17 10:10 Vital Signs Reviewed: Yes Diagnostics - Vital Signs Vital Signs Temp Pulse Resp BP Pulse Ox 10/12/17 14:48 14 10/12/17 14:30 69 10 151/87 95 10/12/17 14:00 120/87 10/12/17 13:59 16 10/12/17 13:30 70 13 157/74 95 10/12/17 13:00 79 15 152/85 98 10/12/17 12:57 152/81 10/12/17 12:47 69 13 96 10/12/17 12:00 64 13 98 10/12/17 11:00 60 14 96 10/12/17 10:40 61 10 99 10/12/17 10:10 96.8 F 61 16 151/76 100 - Laboratory Lab Results: Lab Results 10/12/17 10/12/17 10/12/17 Range/Units 10:33 10:33 10:33 WBC 8.1 (3.5-10.8) 10^3/ul RBC 4.00 (4.0-5.4) 10^6/ul Hgb 11.9 L (14.0-18.0) g/dl Hct 36 L (42-52) % MCV 89 (80-94) fL MCH 30 (27-31) pg MCHC 33 (31-36) g/dl RDW 14 (10.5-15) % Plt Count 290 (150-450) 10^3/ul MPV 7 L (7.4-10.4) um3 Neut % (Auto) 62.4 (38-83) % Lymph % (Auto) 25.3 (25-47) % Antelope % (Auto) 7.4 (1-9) % Eos % (Auto) 3.5 (0-6) % Baso % (Auto) 1.4 (0-2) % Absolute Neuts (auto) 5.0 (1.5-7.7) 10^3/ul Absolute Lymphs (auto) 2.0 (1.0-4.8) 10^3/ul Absolute Monos (auto) 0.6 (0-0.8) 10^3/ul Absolute Eos (auto) 0.3 (0-0.6) 10^3/ul Absolute Basos (auto) 0.1 (0-0.2) 10^3/ul Absolute Nucleated RBC 0.01 10^3/ul Nucleated RBC % 0.1 INR (Anticoag Therapy) 2.05 H (0.89-1.11) APTT 37.8 H (26.0-36.3) seconds Sodium 138 (133-145) mmol/L Potassium 4.1 (3.5-5.0) mmol/L Chloride 103 (101-111) mmol/L Carbon Dioxide 29 (22-32) mmol/L Anion Gap 6 (2-11) mmol/L BUN 19 (6-24) mg/dL Creatinine 1.53 H (0.67-1.17) mg/dL Est GFR ( Amer) 57.3 (>60) Est GFR (Non-Af Amer) 44.6 (>60) BUN/Creatinine Ratio 12.4 (8-20) Glucose 95 (70-100) mg/dL Calcium 9.6 (8.6-10.3) mg/dL Total Bilirubin 0.70 (0.2-1.0) mg/dL AST 29 (13-39) U/L ALT 30 (7-52) U/L Alkaline Phosphatase 150 H (34-104) U/L Total Protein 6.9 (6.4-8.9) g/dL Albumin 3.5 (3.2-5.2) g/dL Globulin 3.4 (2-4) g/dL Albumin/Globulin Ratio 1.0 (1-3) Blood Type Antibody Screen 10/12/17 Range/Units 10:33 WBC (3.5-10.8) 10^3/ul RBC (4.0-5.4) 10^6/ul Hgb (14.0-18.0) g/dl Hct (42-52) % MCV (80-94) fL MCH (27-31) pg MCHC (31-36) g/dl RDW (10.5-15) % Plt Count (150-450) 10^3/ul MPV (7.4-10.4) um3 Neut % (Auto) (38-83) % Lymph % (Auto) (25-47) % Antelope % (Auto) (1-9) % Eos % (Auto) (0-6) % Baso % (Auto) (0-2) % Absolute Neuts (auto) (1.5-7.7) 10^3/ul Absolute Lymphs (auto) (1.0-4.8) 10^3/ul Absolute Monos (auto) (0-0.8) 10^3/ul Absolute Eos (auto) (0-0.6) 10^3/ul Absolute Basos (auto) (0-0.2) 10^3/ul Absolute Nucleated RBC 10^3/ul Nucleated RBC % INR (Anticoag Therapy) (0.89-1.11) APTT (26.0-36.3) seconds Sodium (133-145) mmol/L Potassium (3.5-5.0) mmol/L Chloride (101-111) mmol/L Carbon Dioxide (22-32) mmol/L Anion Gap (2-11) mmol/L BUN (6-24) mg/dL Creatinine (0.67-1.17) mg/dL Est GFR ( Amer) (>60) Est GFR (Non-Af Amer) (>60) BUN/Creatinine Ratio (8-20) Glucose (70-100) mg/dL Calcium (8.6-10.3) mg/dL Total Bilirubin (0.2-1.0) mg/dL AST (13-39) U/L ALT (7-52) U/L Alkaline Phosphatase (34-104) U/L Total Protein (6.4-8.9) g/dL Albumin (3.2-5.2) g/dL Globulin (2-4) g/dL Albumin/Globulin Ratio (1-3) Blood Type O Positive Antibody Screen Negative Result Diagrams: 10/12/17 10:33 10/12/17 10:33 Lab Statement: Any lab studies that have been ordered have been reviewed, and results considered in the medical decision making process. EENT Course/Dx - Course Assessment/Plan: This patient is a 77 year old M BIBA to [facility] with a chief complaint of constant spontaneous bilateral epistaxis since this morning. Pt notes that "when I plugged up the right nostril the left started bleeding." Pt states the blood has mostly stopped with compression. The patient rates the pain 2/10 in severity. Patient reports lright knee pain, and mild SOB secondary to cotton in nasal passages to stop the bleeding. Pt states he is on Warfarin. PMHx includes DVT prophylaxis. PSHx includes recent right knee replacement. I placed surgecel in the right nostril and his bleeding stopped. He was observed for a few hours and epistaxis did not return. The pt is hemodynamically stable , alert and oriented x3, and will be D/C with a Dx of epistaxis. Pt understands and is agreeable with this plan. I discussed all the findings and test results with the patient. Patient was instructed to return to the emergency room immediately if any of the symptoms return or worsens. Plan of care was discussed with the patient and understands and agrees. All questions were answered at patient satisfaction. There were no further complaints or concerns. Lung exam before discharge: CTA B/L. Good air exchange. No wheezing or crackles heard. CVS: S1 and S2 present. No murmurs appreciated. Patient is alert and oriented x 3. Patient is hemodynamically stable. Patient will be discharged home with follow up PCP in the next 2-3 days - Differential Diagnoses Differential Diagnoses: Epistaxis - Diagnoses Provider Diagnoses: Epistaxis Discharge - Discharge Plan Condition: Stable Disposition: HOME Patient Education Materials: Nosebleed (ED) Referrals: Goldy Mon MD [Primary Care Provider] - 1 Week Additional Instructions: RETURN TO THE EMERGENCY DEPARTMENT FOR CHANGING OR WORSENING SYMPTOMS. The documentation as recorded by the Mikael byers Nilda accurately reflects the service I personally performed and the decisions made by me, Tonio Larsen MD.
== END 2017-10-12 16:42 | disposition home or self-care (01) ==
LOC: ED 10:06
DX: R04.0 Epistaxis (principal); E07.9 Disorder of thyroid, unspecified; Z86.74 Personal history of sudden cardiac arrest; I25.10 Atherosclerotic heart disease of native coronary artery without angina pectoris; Z95.1 Presence of aortocoronary bypass graft; I25.2 Old myocardial infarction; Z86.711 Personal history of pulmonary embolism
CPT/HCPCS: 36415; 80053; 85025; 85610; 85730; 86850; 86900; 86901; 99283; A9270-GY